=== PATIENT | male | born 1970 | race Two or more races ===

== ENCOUNTER 2018-12-10 16:44 | Emergency (ER) | payer SELFPAY ==
[~2018-12-10] VITALS: Ht 165.1 cm; Wt 79.4 kg
[2018-12-10 17:15] VITALS: BP 155/109
--- NOTE | 2018-12-10 17:44 | PHYS DOC ---
Past Medical History Past Medical History: No Pertinent History Adult General Chief Complaint Chief Complaint: FINGER INJURY HPI HPI Patient is a 48-year-old male who presents to the emergency department for evaluation. He states he was removing an engine from a vehicle when the engine slipped, and apparently fell, and injured his left ring finger. He has a deformity to his ring finger, with volar deformity of the proximal aspect of the proximal phalanx, with some extension of the DIP joint. the patient denies any injury to any other digit. Palpation of the injured digit causes pain. The patient denies any numbness or weakness distally. He is uncertain of his last tetanus. Review of Systems Review of Systems Musculoskeletal: Denies back pain or joint pain except as noted in the history of present illness [] Neurologic: Denies headache, focal weakness or sensory changes [] Current Medications Current Medications Current Medications Medications (Trade) Dose Ordered Sig/Tae Start Time Stop Time Status Last Admin Dose Admin Cephalexin HCl (Keflex) 500 mg 1X ONCE 12/10/18 20:15 12/10/18 20:16 DC Diphtheria/ Tetanus/Acell Pertussis (Boostrix) 0.5 ml ONCE ONCE 12/10/18 17:45 12/10/18 18:13 DC 12/10/18 18:48 0.5 ML Lidocaine HCl (Lidocaine 1% 20ml Vial) 20 ml 1X ONCE 12/10/18 18:30 12/10/18 18:31 DC 12/10/18 18:47 20 ML Neomycin/ Polymyxin/ Bacitracin (Triple Antibiotic Ointment) 1 pkt STK-MED ONCE 12/10/18 19:42 12/10/18 19:43 DC Oxycodone/ Acetaminophen (Percocet 5/325) 1 tab 1X ONCE 12/10/18 17:45 12/10/18 18:13 DC 12/10/18 18:46 1 TAB Allergies Allergies Allergies Coded Allergies Type Severity Reaction Last Updated Verified No Known Drug Allergies 12/10/18 No Physical Exam Physical Exam PHYSICAL EXAM: HEENT: Atruamatic NECK: Supple, normal ROM, non-tender. CARDIAC: Regular Rate and Rhythm LUNGS: Clear Bilaterally EXTREMITIES: There is a deformity noted to the left ring finger, with a small punctate superficial laceration on the dorsal aspect of the skin. The MCP joint itself and the remainder the left hand are nontender. There is sensation intact distally on the left ring finger, with good capillary refill and strong pulse oximeter tracing. The remainder of the digits and extremities are atraumatic. Current Patient Data Vital Signs Vital Signs Date Time Temp Pulse Resp B/P (MAP) Pulse Ox O2 Delivery O2 Flow Rate FiO2 12/10/18 18:46 16 98 Room Air 12/10/18 17:15 98.6 81 155/109 (124) 98.6 EKG EKG [] Radiology/Procedures Radiology/Procedures [Physician preliminary finger x-ray interpretation, shows a dorsally angulated proximal phalanx fracture, with a distal nondisplaced tuft fracture. No other fractures noted. Postreduction x-ray shows improved alignment of the proximal phalanx fracture. However the distal tuft fracture appears dorsally angulated, likely due to the positioning of the finger in the splint. The splint was volarly flexed after the postreduction x-ray was performed, to alleviate distention. Course & Med Decision Making Course & Med Decision Making Pertinen imaging studies reviewed. (See chart for details) [8:40 PM: I spoke with Dr. Lawson, hand surgeon at . I discussed the case, and the possibility of open fracture. He felt that since it was small, cleaning the wound as has been done, and starting the patient on antibiotics is appropriate. He will see the patient in follow-up.] FRACTURE REDUCTION PROCEDURE NOTE: The patient had a metacarpal block placed using 1% lidocaine, with adequate anesthesia. The finger was manually reduced, with manual traction. The patient tolerated procedure well. Aluminum splint was placed on the volar surface of the finger. Prior to splint application, the patient's wound was cleansed with saline and Shur-Clens, and a bandage with antibiotic ointment placed. Dragon Disclaimer Dragon Disclaimer This electronic medical record was generated, in whole or in part, using a voice recognition dictation system. Departure Departure Impression: Primary Impression: Finger fracture Disposition: 01 HOME, SELF-CARE Condition: STABLE Patient Instructions: Finger Fracture (Phalangeal)-[facility] Additional Instructions: Follow-up with Dr. Lawson, hand surgery at , call [phone] to schedule appointment. Scripts Cephalexin (KEFLEX) 500 Mg Capsule 500 MG PO QID for 7 Days, #28 CAP Prov: DORON MANCINI MD 12/10/18 DORON MANCINI MD Dec 10, 2018 17:44
[2018-12-10] MEDS ORDERED: oxyCODONE/APAP 5/325 1 TAB TABLET PO ONE (17:45)
[2018-12-10] MEDS ORDERED: DIPHTH,PERTUSS(ACELL),TET TOX 0.5 ML DISP.SYRIN. VAX IM ONE (17:45)
[2018-12-10] MEDS ORDERED: LIDOCAINE 1% Multi-Dose 20 ML VIAL. INJ ONE (18:30)
[2018-12-10] MEDS ORDERED: NEOMY/BACITR/POLYMYXIN OINT PACKET. TP ONE (19:42)
[2018-12-10] MEDS ORDERED: CEPHALEXIN 250 MG CAPSULE. PO ONE (20:15)
[2018-12-10] MEDS ORDERED: CEPH-264 PO (20:24)
--- NOTE | 2018-12-10 22:43 | RAD ---
HAND LEFT 3V History: 4TH DIGIT INJURY TO LEFT HAND Comparison: None. Findings: 3 views of the left hand are submitted. There is a comminuted displaced fracture involving the proximal one third shaft of the fourth proximal phalanx, overriding of fracture fragments, angulation with apex directed anteriorly, proximal aspect displaced ulnar and posterior direction by about three fourths shaft width. There is also slightly displaced oblique fracture involving the mid to distal fourth distal phalanx. Impression: 1. There is comminuted displaced and angulated fracture of the fourth proximal phalanx and also somewhat displaced fracture of the fourth distal phalanx. Electronically signed by: Jesus Guevara MD (12/10/2018 10:40 PM) [facility]
--- NOTE | 2018-12-10 23:01 | RAD ---
FINGER(S) LEFT History: POST REDUCTION 4TH DIGIT OF LEFT HAND Comparison: Exam earlier the same day Findings: 3 views of the left hand with attention to the fourth digit are submitted. There is improved alignment at site of previously demonstrated fracture of the proximal one third shaft of the fourth proximal phalanx. There is again somewhat displaced oblique fracture of the distal fourth phalanx, proximal alignment displaced by about 1 shaft width anteriorly compared with the distal fragment, some overriding of fracture fragments.. There is now overlying splint material. Impression: 1. There are fractures of the fourth proximal and distal phalanges. There is some displacement overriding of the distal phalanx fracture fragments. Electronically signed by: Jesus Guevara MD (12/10/2018 10:58 PM) [facility]
== END 2018-12-10 20:44 | disposition home or self-care (01) ==
LOC: ER 16:44
DX: S62.615A Displaced fracture of proximal phalanx of left ring finger, initial encounter for closed fracture (principal); S62.635A Displaced fracture of distal phalanx of left ring finger, initial encounter for closed fracture; W20.8XXA Other cause of strike by thrown, projected or falling object, initial encounter; Y93.89 Activity, other specified; Y92.89 Other specified places as the place of occurrence of the external cause; Y99.8 Other external cause status
CPT/HCPCS: 26725; 73130; 73140; 90471; 90715; 99284-25